=== PATIENT | male | born 1975 | race Caucasian/White ===

== ENCOUNTER 2018-03-30 01:47 | Emergency (ER) | payer SELFPAY ==
[~2018-03-30] VITALS: Ht 170.2 cm; Wt 88.5 kg
[2018-03-30 02:23] VITALS: BP 132/80
[2018-03-30] MEDS ORDERED: MAGNESIUM/ALUMINUM HYDROXIDE/SIMETHICONE 30ML UDC PO STA (02:36)
== END 2018-03-30 02:49 | disposition left against medical advice (07) ==
LOC: ER 01:47
DX: R10.13 Epigastric pain (principal)
CPT/HCPCS: 99281